=== PATIENT | female | born 1975 | race Caucasian/White ===

== ENCOUNTER 2020-11-03 19:17 | Emergency (ER) | payer MEDICARE, MEDICAID, SELFPAY ==
--- NOTE | ~2020-11-03 | XR_ITS ---
EXAMINATION: XR CHEST CLINICAL INFORMATION: Overdose with history of pneumonia COMPARISON: 04/07/2015, chest radiograph TECHNIQUE: 2 views of the chest were obtained. FINDINGS: The heart and pulmonary vessels appear normal. There is no evidence of CHF. There is a new unusual somewhat triangular area of density seen at the right lung base which appears to represent a loculated pleural effusion. A definite associated consolidation is not seen. Left basilar atelectasis is present. XR/XR chest 2V IMPRESSION: New probable fluid collection right lower lobe presumably a loculated pleural effusion or possibly an effusion in the setting of an incomplete fissure. Contrast-enhanced CT scan could be useful for further evaluation.
--- NOTE | 2020-11-03 19:24 | ED.OVERDOSE ---
HPI - Overdose General Chief Complaint: Overdose Stated Complaint: od Time Seen by Provider: 11/03/20 19:23 Source: EMS Mode of arrival: EMS Limitations: no limitations History of Present Illness HPI Narrative: called for patient AMS/semi responsive admits to snorting 2 bags She was not given any reversal by EMS Easy to arouse to verbal stimuli. complaint: accidental overdose Onset (ago): minute(s) Timing confirmed by: spouse Intent: other (For recreational purposes/hi) Treatments Prior to Arrival: none Related Data Allergies Allergy/AdvReac Type Severity Reaction Status Date / Time latex [LATEX] Allergy Mild RASH Verified 11/03/20 19:38 codeine [Codeine] Allergy Unknown UNKNOWN Verified 11/03/20 19:38 Review of Systems Review of Systems: Constitutional: No Weight loss, No Fever, No Chills, No Night Sweats, No Fatigue, No Malaise ENT/Mouth: No Hearing loss, No Ear Pain, No Nasal Congestion, No Sinus Pain, No Hoarseness, No sore throat, No Rhinorrhea, No Swallowing Difficulty Eyes: No Eye Pain, No Swelling, No Redness, No Foreign Body, No Discharge, No Vision Changes Cardiovascular: No Chest Pain, No SOB, No Dyspnea on Exertion, No Orthopnea, No Edema, No Palpitations Respiratory: No Cough, No Sputum, No Wheezing, No Smoke Exposure, No Dyspnea Gastrointestinal: No Nausea, No Vomiting, No Diarrhea, No Constipation, No abdominal Pain, No Hematochezia, No Melena Genitourinary: no irregular bleeding, No Dysuria, No Urinary Frequency, No Hematuria, No Urinary Incontinence, No Urgency, No Flank Pain, No Urinary Flow Changes, No Hesitancy Musculoskeletal: No joint pain, No Myalgias, No Joint Swelling Skin: No Skin Lesions, No rash Neuro: No Weakness, No Numbness, No Paresthesias, No Loss of Consciousness, No Dizziness, No Headache Psych: No Social Issues Heme/Lymph: No Bruising, No Bleeding,No Lymphadenopathy Endocrine: No Polyuria, No Polydipsia, No Temperature Intolerance Yes all other systems are reviewed and are negative [facility] Past Medical History Medical History COPD (chronic obstructive pulmonary disease) Hypertension Opiate abuse, continuous Seizures Social History Social History Advance Directives: No Physical Exam Vital Signs: Vital Signs: Last Vital Signs Temp 97.4 F 11/03/20 21:38 Pulse 78 11/03/20 21:38 Resp 16 11/03/20 21:38 BP 94/54 L 11/03/20 21:38 Pulse Ox 95 11/03/20 21:38 Body Mass Index 22.1 Reviewed Const: General: cooperative and healthy appearing; No acute distress or intoxicated appearing Nutritional Appearance: average body habitus Orientation/consciousness: patient oriented x3 HENMT: Head: Yes normal to inspection Ears: hearing grossly normal bilaterally Eyes: General: appearance normal, both eyes and all related structures Visual Mattson: normal visual mattson by confrontation Neck: Neck: Yes normal visual inspection, No positive Brudzinski's sign, No positive Kernig's sign and No tender Thyroid: Thyroid normal Chest: Chest palpation & inspection: normal inspection of the chest Resp: Effort & Inspection: normal respiratory effort Auscultation: clear to auscultation bilaterally Cardio: Jugular venous distension: no JVD Rhythm: regular rhythm Heart sounds: S1 normal heart sound present and S2 normal heart sound present GI: Inspection: Yes normal to inspection Percussion: Yes normal to percussion Auscultation: normal bowel sounds : General: Yes no CVA tenderness Back/Spine/Pelvis: Back: no CVA tenderness Skin: General skin exam: no rashes or lesions noted Neuro: General: patient oriented x3 Extrem: General: Yes normal to inspection Course Reevaluation(s) Reevaluation #1: Unintentional D on heroin did not require any reversal. Observe in the ED for several hours chest x-ray given ODT and history of bronchoscopy shows New probable fluid collection right lower lobe presumably a loculated pleural effusion or possibly an effusion in the setting of an incomplete fissure. States she has known for this sees metallurgical specialist saw him couple days ago has history of fusion and she is currently on doxycycline she has no complaints related to this. She will follow-up with thoracic surgery. She is requesting be discharged. Denies any SI or HI. Discharge Plan Discharge Clinical Impression: Drug overdose Patient Disposition: Home, Self-Care Instructions: Narcotic Safety (ED), Opioid Use Disorder (ED) Additional Instructions: Please stop using illicit drugs is seriously home health and even cause her Follow up with detox services Return if any concerns or worsening symptoms Follow-up closely with her metallurgical specialist and her primary care doctor Thank you Referrals: Rizwana Baez MD [Primary Care Provider] - 2 days Interventions: ED Discharge Assessment Last Done: 11/03/20 23:48 Discharge Date/Time: 11/03/20 23:50
[2020-11-03 19:38] VITALS: BP 130/80; BP 136/84; PULSE 85; PULSE 92; RESP 16; TEMP 36.9; O2SAT 100; O2SAT 92; BMI 22.1
[2020-11-03 19:52] VITALS: BP 130/76; PULSE 87; RESP 16; TEMP 37.1; O2SAT 90
--- NOTE | 2020-11-03 19:55 | PC.NURSE ---
GIANNA BENAVIDEZ TOLD ME TO PUT PATIENT ON 2L OXYGEN
[2020-11-03 21:38] VITALS: BP 94/54; PULSE 78; RESP 16; TEMP 36.3; O2SAT 95
--- NOTE | 2020-11-03 22:08 | PC.NURSE ---
pt awake and alert, ambulatory to bathroom with steady gait. pt has good respiratory rate and effort.
== END 2020-11-03 23:50 | disposition home or self-care (01) ==
PROVIDERS: Emergency Provider Internal Medicine; PCP Internal Medicine
DX: T40.1X1A Poisoning by heroin, accidental (unintentional), initial encounter (principal); X58.XXXA Exposure to other specified factors, initial encounter; F11.10 Opioid abuse, uncomplicated; I10 Essential (primary) hypertension; J44.9 Chronic obstructive pulmonary disease, unspecified
CPT/HCPCS: 71046; 99283

== ENCOUNTER 2020-12-29 14:25 | Outpatient (REF) | payer MEDICARE, MEDICAID, SELFPAY ==
--- NOTE | 2020-12-29 16:42 | MHC.AU.HAS ---
Hearing Aid Evaluation Date of Visit: 12/29/20 Historical Information: Description of Hearing: Right ear- Normal from 250-750 Hz, sloping to a moderate to profound sensorineural hearing loss from 1000-800 Hz. Left ear- Normal from 250-2000 Hz, sloping to a moderate to severe sensorineural hearing loss from 9898-4733 Hz. Summary: Patient reports that she has previously used hearing aids but lost them several years ago. She believes she initially received the hearing aids in 2014. She is interested in trialing a new pair of aids. Binaural amplification is recommended to facilitate improved communication. Recommend rechargeable FLOR style hearing aids. Hearing Aid Prescription: Based on the individual?s shared listening needs, communication environments, dexterity, desire for connectivity, and personal preferences, the following prescription for amplification has been made: Right ear: Caddie: [employer] Model: Audeo P70-R Battery Size: Rechargeable Color: P6- Silver [employer] Physical Education Teacher: Size 0 M Left ear: Caddie: Phonak Model: Audeo P70-R Battery Size: Rechargeable Color: P6 - Silver [employer] Physical Education Teacher: Size 0 M Action Taken/Action Needed: Hearing Fitting to be scheduled when materials arrive. Checking with to make sure patient is eligible for HAs. If she is not, will submit an online PA as she has lost the previous aids. Primary Diagnosis: H90.3 Bilateral Sensorineural Hearing Loss Signature: Provider: Nam Myrick, [facility]
== END 2020-12-29 14:26 | disposition home or self-care (01) ==
LOC: HO.HAP 14:25
PROVIDERS: Visit Provider Internal Medicine
DX: Z46.1 Encounter for fitting and adjustment of hearing aid (principal); H90.3 Sensorineural hearing loss, bilateral
CPT/HCPCS: 92591

== ENCOUNTER 2021-01-12 14:03 | Outpatient (REF) | payer MEDICARE, MEDICAID, SELFPAY ==
--- NOTE | 2021-01-12 14:50 | MHC.AU.HFA ---
Hearing Instrument Fitting- Adult- Binaural Date of Visit: 01/12/21 Hearing Instruments Dispensed: Right Ear: Residency Director: Phonak Model: Audeo P70-R Serial Number: [id number] Repair Warranty: 04/07/2024 Loss and Damage Warranty: 04/07/2024 Service Plan: 01/12/2022 Battery Size: Rechargeable Color: P6- Silver estevez Butt Sawyer: 1M Type of Dome: Small Open Type of Wax Guard: CeruShield Left Ear: Residency Director: Phonak Model: Audeo P70-R Serial Number: [id number] Repair Warranty: 04/07/2024 Loss and Damage Warranty: 04/07/2024 Service Plan: 01/12/2022 Battery Size: Rechargeable Color: P6 - Silver Estevez Butt Sawyer: 1M Type of Dome: Small Open Type of Wax Guard: CeruShield Summary of Fitting: Feedback associate sales manager was run. Verifit performed and levels adjusted to better reach targets. Patient felt 100% target was too loud. Lowered until patient felt comfortable, which was at 85%. Volume control button is activated. Tap control is deactivated. Patient is pleased with the sound of the instruments. Patient felt the 0M collections specialist was too short, and made the hearing aid sit too high up on her ear. Switched to a 1M, which patient preferred. Hearing aid care and use were discussed and practiced. Patient did not want the hearing aids paired to her phone at this time. Recommendations: Patient is experienced with hearing aid use, and will call if follow up is needed. Diagnosis Code(s): Primary Diagnosis: H90.3 Bilateral Sensorineural Hearing Loss Signature: Provider: Nam Schmitz, [facility]
== END 2021-01-12 14:04 | disposition home or self-care (01) ==
LOC: HO.HAP 14:03
PROVIDERS: Visit Provider Otolaryngology
DX: Z46.1 Encounter for fitting and adjustment of hearing aid (principal); H90.3 Sensorineural hearing loss, bilateral
CPT/HCPCS: V5011; V5020; V5160; V5260

== ENCOUNTER 2023-02-22 21:50 | Emergency (ER) | payer MEDICARE, MEDICAID, SELFPAY ==
[2023-02-22 22:01] VITALS: BP 137/98; PULSE 94; RESP 18; TEMP 36.6; O2SAT 97; BMI 26.2
--- NOTE | 2023-02-22 23:10 | PC.NURSE ---
unable to assess pt as she left prior to being seen
--- NOTE | 2023-02-22 23:19 | PC.NURSE ---
pt came out of her room twice very agitated as to why she was still waiting to be seen by provider at this time she had only been waiting in the room she was assigned to for about 20 minutes as this nurse was discharging another pt, the patient started using derogatory language about this nurse speaking Turkmen to the pt I was discharging at the time pt then proceeded to say she was no longer waiting and leaving pt was witnessed by registration leaving
== END 2023-02-22 23:50 | disposition left against medical advice (07) ==
PROVIDERS: Emergency Provider Emergency Medicine; PCP Internal Medicine
DX: S51.812A Laceration without foreign body of left forearm, initial encounter (principal); W26.0XXA Contact with knife, initial encounter; Y93.83 Activity, rough housing and horseplay; Y92.017 Garden or yard in single-family (private) house as the place of occurrence of the external cause; Y99.9 Unspecified external cause status
CPT/HCPCS: 99281

== ENCOUNTER 2023-02-22 23:47 | Emergency (ER) | payer MEDICARE, MEDICAID, SELFPAY ==
[2023-02-23 00:04] VITALS: BP 137/98; PULSE 94; RESP 18; TEMP 36.6; O2SAT 97; BMI 26.2
--- NOTE | 2023-02-23 01:29 | PC.NURSE ---
pt has been disrespectful with her words with staff and no concerns for the other pt. pt has been in and out of the ed while in the waiting room and then left again while in room emc 5. security aware and spoke with pt. pt is angry needs to smoke. security present when pt went outside and is coming back to her room.
--- NOTE | 2023-02-23 01:40 | PC.NURSE ---
pt has outbursts, using profanity, no consideration of other patients including young child nearby, security has been called to ensure safety of staff and patients, pt agitated, male blood bank assistant tries to de-escalate situation but then later enables pt's behavior charge has spoken to pt multiple times
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
== END 2023-02-23 02:00 | disposition left against medical advice (07) ==
PROVIDERS: Emergency Provider Emergency Medicine
DX: M79.602 Pain in left arm (principal)
CPT/HCPCS: 99282; 99284

== ENCOUNTER 2023-03-23 16:46 | Emergency (ER) | payer MEDICARE, MEDICAID, SELFPAY ==
[2023-03-23 17:35] VITALS: BP 113/77; PULSE 112; RESP 18; TEMP 36.5; O2SAT 98; BMI 20.6
[2023-03-23] MEDS: diphenhydrAMINE HCL 50 MG/ML VIAL IM (17:45)
[2023-03-23] MEDS: LORazepam 2 MG/ML VIAL IM (17:45)
[2023-03-23] MEDS: Haloperidol Lactate 5 MG/ML VIAL IM (17:45)
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
[2023-03-23 18:29] VITALS: BP 106/72; PULSE 94; RESP 16; TEMP 36.6; O2SAT 97
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
--- NOTE | 2023-03-23 20:50 | PC.NURSE ---
pt refused labs
--- NOTE | 2023-03-23 23:32 | ED.PSYCH ---
HPI - Psych General Chief Complaint: Psychiatric Symptoms Stated Complaint: crisis Time Seen by Provider: 03/23/23 18:14 Source: patient Mode of arrival: EMS Limitations: no limitations History of Present Illness HPI Narrative: Patient came by EMS been very paranoid and aggressive had alcohol earlier paranoid about her boyfriend stating that his schizophrenia patient does have psychiatric history with history of COPD hypertension opiate abuse and seizures no seizures noticed Related Data Allergies Allergy/AdvReac Type Severity Reaction Status Date / Time latex [LATEX] Allergy Mild RASH Verified 02/22/23 22:06 codeine [Codeine] Allergy Unknown UNKNOWN Verified 02/22/23 22:06 Review of Systems Review of Systems: Yes all other systems are reviewed and are negative [facility] Past Medical History Medical History COPD (chronic obstructive pulmonary disease) Hypertension Opiate abuse, continuous Seizures Social History Social History Alcohol intake: unknown Advance Directives: No Advance Directives Information Provided: No Physical Exam Vital Signs: Vital Signs: Last Vital Signs Temp 97.9 F 03/23/23 18:29 Pulse 94 03/23/23 18:29 Resp 16 03/23/23 18:29 BP 106/72 03/23/23 18:29 Pulse Ox 97 03/23/23 18:29 O2 Del Method Room Air 03/23/23 18:29 BMI result Body Mass Index 20.6 Appearance: Alert. And awake very agitated and paranoid Eyes: PERRLA, No Nystagmus ENT: Pharynx normal. Oral Mucosa moist Neck: Normal inspection. Neck supple. CVS: Normal heart rate and rhythm. Pulses normal. Respiratory: No respiratory distress. Equal air entry bilateral, Abdomen: Soft and nontender. Bowel sounds are present, no mass palpable, Skin: Skin warm and dry. Normal skin color. Normal skin turgor. Extremities: No lower extremity edema. No calf tenderness Neuro: Alert and awake shouting agitated paranoid Medications Administered Discontinued Medications Generic Name Dose Route Start Last Admin Trade Name Freq PRN Reason Stop Dose Admin Diphenhydramine HCl 50 mg 03/23/23 18:14 03/23/23 17:45 Diphenhydramine Hcl 50 Mg/Ml Vial IM 03/23/23 18:15 50 mg ONCE ONE Administration Haloperidol Lactate 5 mg 03/23/23 18:14 03/23/23 17:45 Haloperidol Lactate 5 Mg/Ml Vial IM 03/23/23 18:15 5 mg ONCE ONE Administration Lorazepam 2 mg 03/23/23 18:14 03/23/23 17:45 Lorazepam 2 Mg/Ml Vial IM 03/23/23 18:15 2 mg ONCE ONE Administration Medical Decision Making Medical Decision Making [facility] Narrative: Patient paranoid and agitated received IM Haldol lorazepam and Benadryl will get care team involved for further management labs are pending Lab Data 03/24/23 01:11 03/24/23 01:11 Labs: Lab Results 03/24/23 Range/Units 01:11 WBC 6.4 (4.8-10.8) X10*3/uL RBC 4.19 L (4.20-5.50) X10*6/uL Hgb 12.4 (12.0-16.0) g/dl Hct 36.9 L (37.0-47.0) % MCV 88.1 (80.0-98.0) fL MCH 29.6 (27.0-33.0) pg MCHC 33.6 (31.0-35.0) g/dl RDW 13.6 (11.0-16.0) % Plt Count 257 (160-400) X10*3/uL MPV 10.1 (9.4-12.3) fL Immature Gran % (Auto) 0.3 (0.0-0.4) % Neut % (Auto) 48.1 (45-73) % Lymph % (Auto) 32.8 (20-40) % Fajardo % (Auto) 8.7 (2-11) % Eos % (Auto) 9.0 H (0-4) % Baso % (Auto) 1.1 (0-2) % Lymph # (Auto) 2.1 (1.2-4.9) X10*3/uL Fajardo # (Auto) 0.6 (0.1-1.2) X10*3/uL Eos # (Auto) 0.6 H (0.0-0.4) X10*3/uL Baso # (Auto) 0.1 (0.0-0.2) X10*3/uL Abs Immat Gran (auto) 0.02 (0.00-0.03) X10*3/uL Absolute Neuts (auto) 3.1 (2.0-8.3) x10*3/uL Absolute Nucleated RBC 0.000 (0.0-0.012) X10*3/uL Nucleated RBC % (auto) 0.0 (0.0-0.2) /100WBC Discharge Plan Discharge Clinical Impression: Bipolar disorder, Alcohol abuse Patient Disposition: Still a Patient
[2023-03-24 01:16] LABS: MANUAL DIFF FLAG NO
[2023-03-24 01:17] LABS: Basophils Absolute Auto 0.1 X10*3/uL (0.0-0.2); Basophils Percent Auto 1.1 % (0-2); Eosinophils Absolute Auto 0.6 X10*3/uL (0.0-0.4); Hematocrit 36.9 % (37.0-47.0); Hemoglobin 12.4 g/dl (12.0-16.0); Imm Gran Abs Auto 0.02 X10*3/uL (0.00-0.03); Imm Gran Pct Auto 0.3 % (0.0-0.4); Lymphocytes Absolute Auto 2.1 X10*3/uL (1.2-4.9); Lymphocytes Percent Auto 32.8 % (20-40); Mean Corpuscular HGB Conc 33.6 g/dl (31.0-35.0); Mean Corpuscular Hemoglobin 29.6 pg (27.0-33.0); Mean Corpuscular Volume 88.1 fL (80.0-98.0); Mean Platelet Volume 10.1 fL (9.4-12.3); Monocytes Absolute Auto 0.6 X10*3/uL (0.1-1.2); Monocytes Percent Auto 8.7 % (2-11); Neutrophils Absolute Auto 3.1 x10*3/uL (2.0-8.3); Neutrophils Percent Auto 48.1 % (45-73); Platelet Count 257 X10*3/uL (160-400); Red Blood Count 4.19 X10*6/uL (4.20-5.50); Red Cell Distribution Width 13.6 % (11.0-16.0); White Blood Count 6.4 X10*3/uL (4.8-10.8)
[2023-03-24 01:40] LABS: Alanine Aminotransferase 25 U/L (0-31); Albumin Level 4.1 g/dL (3.5-5.0); Alkaline Phosphatase 101 U/L (39-117); Anion Gap 16 (12-20); Aspartate Amino Transferase 33 U/L (5-31); Bilirubin Total 0.5 mg/dL (0.0-1.0); Blood Urea Nitrogen 27 mg/dL (9-16); Calcium 8.8 mg/dL (8.4-10.2); Carbon Dioxide 21 mmol/L (22-29); Chloride 109 mmol/L (96-108); Creatinine Clr Calc Pharmacy 59.6; Estimated Glomerular Filt Rate > 60; Ethanol < 10 mg/dL; Glucose Random 89 mg/dL (60-115); Potassium 2.8 mmol/L (3.3-5.1); Salicylate < 5.0 mg/dL (15-30); Sodium 143 mmol/L (135-145)
[2023-03-24 01:55] LABS: Acetaminophen LAB < 1 mcg/mL (<30)
--- NOTE | 2023-03-24 04:20 | PC.NURSE ---
Pt is sleeping supine in bed, appears comfortable. Pt is arousable with verbal stimuli. Will continue to monitor.
[2023-03-24 05:14] LABS: Appearance Urine Turbid; Color Urine Dark Yellow; Glucose Urine UA Negative (Negative); Leukocyte Esterase Urine Moderate (2+) (Negative); Nitrite Urine Negative (Negative); PH 5.5 (5.0-9.0); Specific Gravity - Urine >= 1.030 (1.005-1.025); UMIC TRIGGER UACC YES; UPreg QC Valid YES; Urine Blood Small (1+) (Negative); Urine Ketones Trace mg/dL (Negative); Urine Pregnancy NEGATIVE (NEGATIVE); Urine Protein 30 (1+) mg/dL (Neg-Trace)
[2023-03-24 05:27] LABS: Amphetamine Screen Urine Not Detected (Not Detect); Barbiturates, Urine Not Detected (Not Detect); Benzodiazepines Screen Urine POSITIVE (Not Detect); Cannabinoid Screen Urine Not Detected (Not Detect); Cocaine Screen Urine POSITIVE (Not Detect); Fentanyl, urine Not Detected (Not Detect); Opiate Screen Urine Not Detected (Not Detect); Phencyclidine Screen Urine Not Detected (Not Detect)
[2023-03-24 05:37] LABS: Bacteria Urine None Seen (None Seen); Epith (RTE) Cast Present; Granular Casts Urine Present; Other Crystals Urine Present; RBC Urine 0-2 /HPF (0-2); UACC Culture Trigger YES; WBC Urine >50 /HPF (0-5)
[2023-03-24 06:52] VITALS: BP 114/57; PULSE 75; RESP 16; TEMP 36.6; O2SAT 96
[2023-03-24] MEDS: Nicotine 21 MG PATCH.TD24 TRANSDERMA (11:05)
--- NOTE | 2023-03-24 11:30 | PC.NURSE ---
Seen by provider/ care team. Patient denies SI/HI. Discharge instructions reviewed with patient who verbalized understanding
== END 2023-03-24 11:38 | disposition home or self-care (01) ==
PROVIDERS: Emergency Provider Internal Medicine
DX: F31.9 Bipolar disorder, unspecified (principal); F10.10 Alcohol abuse, uncomplicated; F60.0 Paranoid personality disorder; F20.0 Paranoid schizophrenia; Y90.9 Presence of alcohol in blood, level not specified; J44.9 Chronic obstructive pulmonary disease, unspecified; Z79.899 Other long term (current) drug therapy
CPT/HCPCS: 36415; 80053; 80143; 80179; 80307; 81001; 81025; 85025; 87086; 87147; 96372; 99284; J1200; J2060; S9485

== ENCOUNTER 2024-08-26 08:20 | Outpatient (REF) | payer MEDICARE, MEDICAID, SELFPAY ==
--- NOTE | 2024-08-26 09:14 | MHC.AU.MED ---
Medical Clearance for Hearing Instrumentation Date: 08/26/24 Patient Name: Renee Osorio Date of : 1975 Primary Care Provider: Mike Coffman MD Referring Provider: Jannet Mancilla MD We have seen your patient on 08/26/24 and have determined that they are a candidate for amplification (See accompanying report). Specifically, they would benefit from: Hearing aid use in both ears There is a statute that addresses Medical Evaluation Requirements prior to fitting a patient with a hearing aid. According to [place] statute 265 CMR:6.03(1), (a) General. Except as provided in 265 CMR 6.03(1)(b), a supervisor wool shearing shall not sell a hearing aid unless the prospective user has presented to the supervisor wool shearing a written statement signed by a licensed physician that states that the patient's hearing loss has been medically evaluated and the patient may be considered a candidate for a hearing aid. The medical evaluation must have taken place within the preceding six months. Please note: Due to the [place] Statute referenced above, we cannot accept a signature other than that of a licensed physician. FEATHER EDGER and PA signatures cannot be accepted. I am in agreement with the above recommendation. There is no medical contraindication for hearing instrumentation. Physician Signature Date Physician Name (Printed)
--- NOTE | 2024-08-26 09:14 | MHC.AU.HA1 ---
Hearing Aid Evaluation Date of Visit: 08/26/24 Protocol Officer Used: Historical Information: Description of Hearing: Normal sloping to severe SNHL bilaterally, R>L Current personal amplification information, if applicable: previously wore Audeo P70-R, devices lost Summary: Here for evaluation and hearing aid discussion as pt lost hearing aids during a move about 1.5 years ago. Hearing stable. Selected Phonak Audeo I50-R in silver. Will submit for prior approval once medical clearance is received. Hearing Aid Prescription: Based on the individual?s shared listening needs, communication environments, dexterity, desire for connectivity, and personal preferences, the following prescription for amplification has been made: Right ear: Make, Model, Color: Phonak Audeo I50-R, silver Battery Size: Rechargeable Claim Examiner/Slim Tube: 1M Type of Earmold/Dome/CShell/SlimTip: med vented Left ear: Left ear prescription to be same as Right Hearing Aid above: Make, Model, Color: Phonak Audeo I50-R, silver Battery Size: Rechargeable Claim Examiner/Slim Tube: 1M Type of Earmold/Dome/CShell/SlimTip: med vented Accessories/Assistive Technology Recommended: refueling ramp supervisor Plan of Care: Patient wishes to purchase hearing aids as prescribed Action Taken/Action Needed: Prior authorization to be requested Medical Clearance to be requested from PCP/ENT Hearing Instrument Fitting to be scheduled when materials arrive Primary Diagnosis: H90.3 Bilateral Sensorineural Hearing Loss Signature: Provider: Nam Bai, CCC-A
== END 2024-08-26 08:21 | disposition home or self-care (01) ==
LOC: HO.SH 08:20
PROVIDERS: PCP Internal Medicine; Visit Provider Nurse Practitioner Family
DX: Z01.118 Encounter for examination of ears and hearing with other abnormal findings (principal); Z46.1 Encounter for fitting and adjustment of hearing aid; H90.3 Sensorineural hearing loss, bilateral
CPT/HCPCS: 92552; 92556; 92591

== ENCOUNTER 2024-10-21 12:41 | Outpatient (REF) | payer MEDICARE, MEDICAID, SELFPAY ==
--- NOTE | 2024-10-21 13:22 | MHC.AU.HA2 ---
Hearing Instrument Fitting- Adult- Binaural Date of Visit: 10/21/24 Hearing Instruments Dispensed: Right Ear: Douglas, Model, Color, Serial Number: Shemar Ferrera I50-R SN: [id number] Color: Silver Estevez Fuel Technician Repair Warranty: 10/29/2027 Fuel Technician Loss and Damage Warranty: 10/29/2027 [facility] Service Plan: 10/21/2025 Battery Size: Rechargeable Truck Loader Overhead Crane/Slim Tube: 1M Earmold/Dome/CShell/SlimTip: Medium vented dome (no retention tail) Type of Wax Guard: CeruStop Left Ear: Make, Model, Color, Serial Number: Shemar Nairo I50-R SN: [id number] Color: Silver Estevez Fuel Technician Repair Warranty: 10/29/2027 Fuel Technician Loss and Damage Warranty: 10/29/2027 [facility] Service Plan: 10/21/2025 Battery Size: Rechargeable Truck Loader Overhead Crane/Slim Tube: 1M Earmold/Dome/CShell/SlimTip: Medium vented dome (no retention tail) Type of Wax Guard: CeruStop Accessories/Assistive Technology: Phonak Insurance Sales Specialist FLOR SN: [id number] Summary of Fitting: Performed test box measures prior to appointment. Ran feedback analyzer and real ear measures. Comfortable at real ear settings. Discussed acclimatization period and importance of daily, consistent use as Renee has not used HAs in >2 years. Reviewed care, use, and rechargeability including manually turning on/off, VC use, and changing domes and wax guards. Did not discuss bluetooth yet, will do at follow up. Recommendations: A hearing instrument follow-up was scheduled. Diagnosis Code(s): Primary Diagnosis: H90.3 Bilateral Sensorineural Hearing Loss Signature: Provider: Michael Gallo, [facility]
== END 2024-10-21 12:42 | disposition home or self-care (01) ==
LOC: HO.HAP 12:41
PROVIDERS: Visit Provider Internal Medicine
DX: Z46.1 Encounter for fitting and adjustment of hearing aid (principal); H90.3 Sensorineural hearing loss, bilateral
CPT/HCPCS: 92595; V5011; V5020; V5160; V5261

== ENCOUNTER 2024-11-11 09:51 | Outpatient (REF) | payer MEDICARE, MEDICAID, SELFPAY ==
--- NOTE | 2024-11-11 10:28 | MHC.AU.HA3 ---
Hearing Instrument Follow-Up- Binaural Date of Visit: 11/11/24 Right Ear: Douglas, , Color, Serial Number: Shemar Ferrera I50-R SN: [id number] Color: Silver Estevez Director Supply Chain Repair Warranty: 10/29/2027 Director Supply Chain Loss and Damage Warranty: 10/29/2027 [facility] Service Plan: 10/21/2025 Battery Size: Rechargeable Warp Tester/Slim Tube: 1M Earmold/Dome/CShell/SlimTip:Small vented dome with retention tail Type of Wax Guard: CeruStop Dispensed By: [facility] Date of Fittin10/21/2024 Left Ear: Douglas, , Color, Serial Number: Shemar Ferrera I50-R SN: [id number] Color: Silver Estevez Director Supply Chain Repair Warranty: 10/29/2027 Director Supply Chain Loss and Damage Warranty: 10/29/2027 [facility] Service Plan: 10/21/2025 Battery Size: Rechargeable Warp Tester/Slim Tube: 1M Earmold/Dome/CShell/SlimTip: Small vented dome with retention tail Type of Wax Guard: CeruStop Dispensed By: [facility] Date of Fittin10/21/2024 Follow-Up Summary: Reportedly has not been wearing HAs, left stopped working after a few days. Both HAs today. Charged for ~10 mins in office. After charging, both aids amplifying clearly. HAs also reportedly work their way out of ears. Changed to small vented domes and added retention tail at Renee's request. Some difficulty inserting retention tail but better with practice. Renee will call if issues with left BEAL return. Recommendations: Hearing instrument follow-up or maintenance as needed. Please contact our clinic with any questions or concerns. Patient will call if problems persist. Diagnosis Code(s): Primary Diagnosis: H90.3 Bilateral Sensorineural Hearing Loss Signature: Provider: Michael Gallo, [facility]
== END 2024-11-11 09:52 | disposition home or self-care (01) ==
LOC: HO.HAP 09:51
PROVIDERS: PCP Internal Medicine; Visit Provider Internal Medicine
DX: Z13.89 Encounter for screening for other disorder (principal)

== ENCOUNTER 2024-12-02 09:08 | Outpatient (REF) | payer MEDICARE, MEDICAID, SELFPAY ==
--- NOTE | 2024-12-02 12:36 | MHC.AU.HA3 ---
Hearing Instrument Follow-Up- Binaural Date of Visit: 12/02/24 Right Ear: Douglas, , Color, Serial Number: Shemar Ferrera I50-R SN: [id number] Color: Silver Estevez Oil Derrick Operator Repair Warranty: 10/29/2027 Oil Derrick Operator Loss and Damage Warranty: 10/29/2027 [facility] Service Plan: 10/21/2025 Battery Size: Rechargeable Insulator Technician/Slim Tube: 1M Earmold/Dome/CShell/SlimTip:med vented dome with retention tail Type of Wax Guard: CeruStop Dispensed By: [facility] Date of Fittin10/21/2024 Left Ear: Douglas, , Color, Serial Number: Shemar Ferrera I50-R SN: [id number] Color: Silver Estevez Oil Derrick Operator Repair Warranty: 10/29/2027 Oil Derrick Operator Loss and Damage Warranty: 10/29/2027 [facility] Service Plan: 10/21/2025 Battery Size: Rechargeable Insulator Technician/Slim Tube: 1M Earmold/Dome/CShell/SlimTip: med vented dome with retention tail Type of Wax Guard: CeruStop Dispensed By: [facility] Date of Fittin10/21/2024 Follow-Up Summary: Here with Kesha for hearing aid problem. Reports the hearing aids sounded good for 15 minutes after her last appointment and then the left stopped working. Reports the small domes slip out of her ears. Reports she tried wearing just the right but felt imbalance. Found left wax guard clogged. Cleaned both aids, replaced domes and wax guards, listening check positive. Returned to med vented dome, improved comfort reported. Reviewed maintenance procedures. Recommendations: Recommendations: Hearing instrument follow-up or maintenance as needed. Diagnosis Code(s): Primary Diagnosis: H90.3 Bilateral Sensorineural Hearing Loss Signature: Provider: Michael Clement, [facility]
== END 2024-12-02 09:09 | disposition home or self-care (01) ==
LOC: HO.HAP 09:08
PROVIDERS: Visit Provider Internal Medicine
DX: Z13.89 Encounter for screening for other disorder (principal)